=== PATIENT | male | born 1970 | race Caucasian/White ===

== ENCOUNTER 2017-10-23 15:52 | Emergency (ER) | payer SELFPAY ==
[~2017-10-23] VITALS: Ht 177.8 cm; Wt 103.2 kg
[~2017-10-23 15:52] MED LIST: CHOLESTEROL MED; SYNTHROID25 MCG PO
[2017-10-23] MEDS ORDERED: CLEOCIN300 MG PO (18:02)
[2017-10-23] MEDS ORDERED: CLEOCIN150 MG PO (18:02)
[2017-10-23] MEDS ORDERED: PERCOCET 5/31 TABLET PO (18:05)
[2017-10-23] MEDS ORDERED: MOTRIN800 MG PO (18:05)
[2017-10-23 18:22] VITALS: BP 161/102
== END 2017-10-23 19:07 | disposition home or self-care (01) ==
LOC: EME 15:52
PROC: 0H9KXZZ Drainage of Right Lower Leg Skin, External Approach (ICD-10-PCS; principal; 2017-10-23)
DX: L02.415 Cutaneous abscess of right lower limb (principal); L03.115 Cellulitis of right lower limb; B95.61 Methicillin susceptible Staphylococcus aureus infection as the cause of diseases classified elsewhere; Z88.0 Allergy status to penicillin
CPT/HCPCS: 73564; 87070; 87075; 87077; 87147; 87186; 87205; 99281; 99284

== ENCOUNTER 2018-01-10 18:15 | Emergency (ER) | payer BC ==
[~2018-01-10] VITALS: Ht 177.8 cm; Wt 92.3 kg
[~2018-01-10 18:15] MED LIST changes: +CLEOCIN150 MG PO; +CLEOCIN300 MG PO; +MOTRIN800 MG PO; +PERCOCET 5/31 TABLET PO
[2018-01-10] MEDS ORDERED: PREDNISONE20 MG PO (20:28)
[2018-01-10] MEDS ORDERED: INDOCIN50 MG PO (20:29)
[2018-01-10 21:37] VITALS: BP 158/90
== END 2018-01-10 21:37 | disposition home or self-care (01) ==
LOC: EME 18:15
DX: M54.42 Lumbago with sciatica, left side (principal); G89.29 Other chronic pain; E78.5 Hyperlipidemia, unspecified; Z88.0 Allergy status to penicillin
CPT/HCPCS: 99281; 99283; J1885; J3010; J7512